=== PATIENT | female | born 1970 | race Caucasian/White ===

== ENCOUNTER 2018-11-23 08:49 | Emergency (ER) | payer SELFPAY ==
[~2018-11-23] VITALS: Ht 172.7 cm; Wt 83.2 kg
[~2018-11-23 08:49] MED LIST: FLEXERIL PO; KLONOPIN1 MG PO; KLONOPIN2 MG PO; LUNESTA3 MG PO; NAPROSYN500 MG PO; PRILOSEC20 MG/CAP PO; ROPINIROLE0.5 MG PO; TYLENOL 500MG TAB PO; XANAX0.5 MG PO
[2018-11-23 09:31] LABS: HEMOGLOBIN 14.9 g/dl (12.0-16.0); IMMATURE GRANULOCYTES 0.1 % (0.0-5.0); MEAN CELL VOLUME 91.5 fL CALC (80.0-100.0); MEAN CORPUSCULAR HGB 30.2 pG CALC (26.0-32.0); NEUT# 4.26 thou/uL (2.00-7.15); RED BLOOD COUNT 4.94 mill/uL (4.20-5.60); RED CELL DISTRI WIDTH 12.9 % (11.5-15.5)
[2018-11-23 09:33] LABS: HEMATOCRIT 45.2 % (37.0-47.0)
[2018-11-23 09:43] LABS: ANION GAP 14 (6-22 (CALC)); BILIRUBIN, TOTAL 0.4 mg/dL (0.0-1.4); BUN 17 mg/dL (7-17); BUN/CREATININE RATIO 26 (12-20 (CALC)); CARBON DIOXIDE 23 mmol/l (22-30); CHLORIDE 104 mmol/l (95-108); CREATININE 0.7 mg/dL (0.5-1.0); GFR > 60 ML/MIN (>=60 (CALC)); GFR FOR AFR.AMER. > 60 ML/MIN (>=60 (CALC)); POTASSIUM 4.4 mmol/l (3.5-5.1); SODIUM 137 mmol/l (137-146); TOTAL PROTEIN 7.3 g/dL (6.3-8.2)
[2018-11-23 09:44] LABS: ALBUMIN 4.7 g/dL (3.2-5.0); ALKALINE PHOSPHATASE 74 u/l (38-126); SGOT/AST 43 u/l (14-36)
[2018-11-23 09:58] LABS: URINE BILIRUBIN - DIPSTICK NEGATIVE (NEGATIVE); URINE BLOOD DIPSTICK NEGATIVE (NEGATIVE); URINE COLOR YELLOW; URINE GLUCOSE - DIPSTICK NEGATIVE (NEGATIVE); URINE KETONE NEGATIVE (NEGATIVE); URINE LEUK ESTERASE NEGATIVE (NEGATIVE); URINE NITRITE - DIPSTICK NEGATIVE (Negative); URINE PROTEIN - DIPSTICK NEGATIVE (NEG-TRACE); URINE SPECIFIC GRAVITY <=1.005; URINE UROBILINOGEN - DIPSTICK 0.2 E.U./dL (0.2)
[2018-11-23 10:13] LABS: TSH, 3RD GENERATION 3.41 uIU/mL (0.47 - 4.68)
[2018-11-23 10:17] LABS: COCAINE NEGATIVE (NEGATIVE); METHADONE NEGATIVE (NEGATIVE); TETRAHYDROCANNABIONOL NEGATIVE (NEGATIVE)
[2018-11-23 10:18] LABS: BARBITURATES NEGATIVE (NEGATIVE); OXCYCODONE NEGATIVE (NEGATIVE); TRICYLIC ANTIDEPRESSANTS NEGATIVE (NEGATIVE)
[2018-11-23 10:46] VITALS: BP 121/76
== END 2018-11-23 10:53 | disposition home or self-care (01) | DRG 880 ==
LOC: ED 08:49
PROVIDERS: Emergency Medicine
DX: F41.9 Anxiety disorder, unspecified (principal); E11.9 Type 2 diabetes mellitus without complications; I10 Essential (primary) hypertension

== ENCOUNTER 2019-10-07 | Day surgery (SDC) | payer SELFPAY ==
[~2019-10-07] MED LIST changes: +ALPRAZOLAM1 MG PO; +ATENOLOL25 MG PO; +LISINOP/HCTZ1 TA1 PO; +LISINOPRIL20 MG PO; +MIRALAX3350 NF PO; +TENORMIN PO
[2020-05-05] MEDS ORDERED: SUCRALFATE1 GM PO (13:17)
[2020-05-05] MEDS ORDERED: PROTONIX40 M2 PO (13:17)
[2020-05-05] MEDS ORDERED: DOCUSATE CAL240 MG PO (13:18)
[2020-05-05] MEDS ORDERED: SIMETHICONE (13:18)
[2020-05-05] MEDS ORDERED: B121000 MCG PO (13:18)
[2020-05-05] MEDS ORDERED: OMEGA 31000 MG PO (13:18)
[2020-05-20] MEDS ORDERED: GAS RELIEF80 M1 PO (11:55)
[2020-05-20] MEDS ORDERED: PROBIOTIC1 TAB PO (13:03)
[2020-05-20] MEDS ORDERED: B COMPLETE PO (13:04)
[2020-05-20] MEDS ORDERED: D3 MAXIMUM5000 UNI1 PO (13:04)
[2020-05-20] MEDS ORDERED: COLLAGE2 PO (13:04)
[2020-06-30] MEDS ORDERED: BENADRYL 25MG C25 MG PO (10:59)
== END 2019-10-07 09:40 | disposition home or self-care (01) | DRG 392 ==
PROC: 0DBE8ZX Excision of Large Intestine, Via Natural or Artificial Opening Endoscopic, Diagnostic (ICD-10-PCS; principal; 2019-10-07)
DX: K57.30 Diverticulosis of large intestine without perforation or abscess without bleeding (principal); K63.89 Other specified diseases of intestine; K64.8 Other hemorrhoids; I10 Essential (primary) hypertension; F41.9 Anxiety disorder, unspecified; Z86.010 Personal history of colon polyps

== ENCOUNTER 2020-04-18 12:07 | Emergency (ER) | payer SELFPAY ==
[~2020-04-18] VITALS: Ht 172.7 cm; Wt 80.0 kg
[2020-04-18] MEDS ORDERED: HYDROXYZ HCL25 MG PO (12:26)
[2020-04-18] MEDS ORDERED: DICYCLOMINE20 MG PO (12:27)
[2020-04-18] MEDS ORDERED: LOPID600 MG PO (12:27)
[2020-04-18 12:47] LABS: HEMATOCRIT 44.9 % (37.0-47.0); HEMOGLOBIN 14.5 g/dl (12.0-16.0); IMMATURE GRANULOCYTES 0.4 % (0.0-5.0); MEAN CORPUSCULAR HGB 27.6 pG CALC (26.0-32.0); MEAN CORPUSCULAR HGB CONC 32.3 g/dL CAL (32.0-36.0); NEUT# 4.47 thou/uL (2.00-7.15); RED BLOOD COUNT 5.25 mill/uL (4.20-5.60); RED CELL DISTRI WIDTH 14.2 % (11.5-15.5)
[2020-04-18 12:48] LABS: URINE BILIRUBIN - DIPSTICK NEGATIVE (NEGATIVE); URINE BLOOD DIPSTICK NEGATIVE (NEGATIVE); URINE COLOR YELLOW; URINE GLUCOSE - DIPSTICK NEGATIVE (NEGATIVE); URINE KETONE NEGATIVE (NEGATIVE); URINE LEUK ESTERASE NEGATIVE (NEGATIVE); URINE NITRITE - DIPSTICK NEGATIVE (Negative); URINE PROTEIN - DIPSTICK NEGATIVE (NEG-TRACE); URINE SPECIFIC GRAVITY 1.015; URINE UROBILINOGEN - DIPSTICK 0.2 E.U./dL (0.2)
[2020-04-18 12:48] LABS: MEAN CELL VOLUME 85.5 fL CALC (80.0-100.0)
[2020-04-18 13:05] LABS: ALBUMIN 5.1 g/dL (3.2-5.0); ALKALINE PHOSPHATASE 76 u/l (38-126); AMYLASE 63 u/l (30-110); ANION GAP 17 (6-22 (CALC)); BILIRUBIN, TOTAL 0.5 mg/dL (0.0-1.4); BUN 20 mg/dL (7-17); BUN/CREATININE RATIO 28 (12-20 (CALC)); CARBON DIOXIDE 24 mmol/l (22-30); CHLORIDE 98 mmol/l (95-108); CREATININE 0.7 mg/dL (0.5-1.0); GFR > 60 ML/MIN (>=60 (CALC)); GFR FOR AFR.AMER. > 60 ML/MIN (>=60 (CALC)); LIPASE 69 u/l (23-300); POTASSIUM 4.9 mmol/l (3.5-5.1); SODIUM 135 mmol/l (137-146); TOTAL PROTEIN 8.5 g/dL (6.3-8.2)
[2020-04-18 13:12] LABS: SGOT/AST 80 u/l (14-36)
[2020-04-18] MEDS ORDERED: PEPCID20 MG PO ×2 (14:32)
[2020-04-18 14:42] VITALS: BP 140/77
[2020-04-19] MEDS ORDERED: ATENOLOL50 MG PO (05:23)
[2020-04-19] MEDS ORDERED: MIRALAX3350 N1 PO (06:50)
[2020-05-05] MEDS ORDERED: PROTONIX40 M2 PO (13:17)
[2020-05-05] MEDS ORDERED: SUCRALFATE1 GM PO (13:17)
[2020-05-05] MEDS ORDERED: DOCUSATE CAL240 MG PO (13:18)
[2020-05-05] MEDS ORDERED: OMEGA 31000 MG PO (13:18)
[2020-05-05] MEDS ORDERED: SIMETHICONE (13:18)
[2020-05-05] MEDS ORDERED: B121000 MCG PO (13:18)
[2020-05-20] MEDS ORDERED: GAS RELIEF80 M1 PO (11:55)
[2020-05-20] MEDS ORDERED: PROBIOTIC1 TAB PO (13:03)
[2020-05-20] MEDS ORDERED: D3 MAXIMUM5000 UNI1 PO (13:04)
[2020-05-20] MEDS ORDERED: B COMPLETE PO (13:04)
[2020-05-20] MEDS ORDERED: COLLAGE2 PO (13:04)
[2020-06-30] MEDS ORDERED: BENADRYL 25MG C25 MG PO (10:59)
== END 2020-04-18 14:43 | disposition home or self-care (01) | DRG 392 ==
LOC: ED 12:07
DX: R10.11 Right upper quadrant pain (principal); R10.13 Epigastric pain; G89.29 Other chronic pain; E11.9 Type 2 diabetes mellitus without complications; I10 Essential (primary) hypertension; K58.9 Irritable bowel syndrome, unspecified; K57.90 Diverticulosis of intestine, part unspecified, without perforation or abscess without bleeding
CPT/HCPCS: Q9967

== ENCOUNTER 2020-04-19 02:51 | Emergency (ER) | payer SELFPAY ==
[~2020-04-19] VITALS: Ht 172.7 cm; Wt 80.0 kg
[~2020-04-19 02:51] MED LIST changes: +DICYCLOMINE20 MG PO; +HYDROXYZ HCL25 MG PO; +LOPID600 MG PO; +PEPCID20 MG PO
[2020-04-19 03:33] LABS: HEMATOCRIT 40.3 % (37.0-47.0); HEMOGLOBIN 13.2 g/dl (12.0-16.0); IMMATURE GRANULOCYTES 0.3 % (0.0-5.0); MEAN CELL VOLUME 85.9 fL CALC (80.0-100.0); MEAN CORPUSCULAR HGB 28.1 pG CALC (26.0-32.0); MEAN CORPUSCULAR HGB CONC 32.8 g/dL CAL (32.0-36.0); NEUT# 5.69 thou/uL (2.00-7.15); RED BLOOD COUNT 4.69 mill/uL (4.20-5.60); RED CELL DISTRI WIDTH 14.2 % (11.5-15.5)
[2020-04-19 03:49] LABS: ALBUMIN 4.7 g/dL (3.2-5.0); ALKALINE PHOSPHATASE 66 u/l (38-126); AMYLASE 68 u/l (30-110); ANION GAP 14 (6-22 (CALC)); BILIRUBIN, TOTAL 0.3 mg/dL (0.0-1.4); BUN 22 mg/dL (7-17); BUN/CREATININE RATIO 22 (12-20 (CALC)); CARBON DIOXIDE 26 mmol/l (22-30); CHLORIDE 100 mmol/l (95-108); GFR 59 ML/MIN (>=60 (CALC)); GFR FOR AFR.AMER. > 60 ML/MIN (>=60 (CALC)); LIPASE 91 u/l (23-300); POTASSIUM 4.6 mmol/l (3.5-5.1); SGOT/AST 53 u/l (14-36); SODIUM 134 mmol/l (137-146); TOTAL PROTEIN 7.6 g/dL (6.3-8.2)
[2020-04-19] MEDS ORDERED: ATENOLOL50 MG PO (05:23)
[2020-04-19 05:38] LABS: URINE BILIRUBIN - DIPSTICK NEGATIVE (NEGATIVE); URINE BLOOD DIPSTICK NEGATIVE (NEGATIVE); URINE COLOR YELLOW; URINE GLUCOSE - DIPSTICK NEGATIVE (NEGATIVE); URINE KETONE NEGATIVE (NEGATIVE); URINE LEUK ESTERASE NEGATIVE (NEGATIVE); URINE NITRITE - DIPSTICK NEGATIVE (Negative); URINE PROTEIN - DIPSTICK NEGATIVE (NEG-TRACE); URINE UROBILINOGEN - DIPSTICK 0.2 E.U./dL (0.2)
[2020-04-19] MEDS ORDERED: MIRALAX3350 N1 PO (06:50)
[2020-04-19 07:05] VITALS: BP 138/75
[2020-05-05] MEDS ORDERED: SUCRALFATE1 GM PO (13:17)
[2020-05-05] MEDS ORDERED: PROTONIX40 M2 PO (13:17)
[2020-05-05] MEDS ORDERED: SIMETHICONE (13:18)
[2020-05-05] MEDS ORDERED: DOCUSATE CAL240 MG PO (13:18)
[2020-05-05] MEDS ORDERED: B121000 MCG PO (13:18)
[2020-05-05] MEDS ORDERED: OMEGA 31000 MG PO (13:18)
[2020-05-20] MEDS ORDERED: GAS RELIEF80 M1 PO (11:55)
[2020-05-20] MEDS ORDERED: PROBIOTIC1 TAB PO (13:03)
[2020-05-20] MEDS ORDERED: COLLAGE2 PO (13:04)
[2020-05-20] MEDS ORDERED: D3 MAXIMUM5000 UNI1 PO (13:04)
[2020-05-20] MEDS ORDERED: B COMPLETE PO (13:04)
[2020-06-30] MEDS ORDERED: BENADRYL 25MG C25 MG PO (10:59)
== END 2020-04-19 07:05 | disposition home or self-care (01) | DRG 392 ==
LOC: ED 02:51
PROVIDERS: Family Medicine
DX: K58.1 Irritable bowel syndrome with constipation (principal); E11.9 Type 2 diabetes mellitus without complications; I10 Essential (primary) hypertension
CPT/HCPCS: Q9967

== ENCOUNTER 2020-05-27 06:11 | Day surgery (SDC) | payer SELFPAY ==
[~2020-05-27 06:11] MED LIST changes: +ATENOLOL50 MG PO; +B COMPLETE PO; +B121000 MCG PO; +COLLAGE2 PO; +D3 MAXIMUM5000 UNI1 PO; +DOCUSATE CAL240 MG PO; +GAS RELIEF80 M1 PO; +MIRALAX3350 N1 PO; +OMEGA 31000 MG PO; +PROBIOTIC1 TAB PO; +PROTONIX40 M2 PO; +SIMETHICONE; +SUCRALFATE1 GM PO
[2020-05-27 08:18] VITALS: BP 110/55
[2020-06-30] MEDS ORDERED: BENADRYL 25MG C25 MG PO (10:59)
== END 2020-05-27 08:35 | disposition home or self-care (01) | DRG 392 ==
LOC: ENDO 06:11 → ORM 08:00 → ENDO 08:35
PROVIDERS: ATTEND Surgery
PROC: 0DJ08ZZ Inspection of Upper Intestinal Tract, Via Natural or Artificial Opening Endoscopic (ICD-10-PCS; principal; 2020-05-27)
DX: K21.9 Gastro-esophageal reflux disease without esophagitis (principal); K44.9 Diaphragmatic hernia without obstruction or gangrene; Z79.899 Other long term (current) drug therapy; Z20.828 Contact with and (suspected) exposure to other viral communicable diseases

== ENCOUNTER 2020-07-06 08:36 | Day surgery (SDC) | payer SELFPAY ==
[~2020-07-06] VITALS: Ht 172.7 cm; Wt 97.1 kg
[2020-07-06] VITALS (7 sets, daily range): BP systolic 118–158; BP diastolic 70–89
[~2020-07-06 08:36] MED LIST changes: +BENADRYL 25MG C25 MG PO
--- NOTE | 2020-07-06 14:45 | NUR ---
PT ARRIVED TO [place] VIA WC FROM OR. A&O X3. BILATERAL SCDS IN PLACE. NG TUBE PLACED TO LOW INTERMITTENT SUCTION BY OR NURSE DUE TO NAUSEA. O2 VIA NC @ 2L PLACED. PT HOB ELEVATED. PT INSTRUCTED TO CALL IF NAUSEA OCCURS TO GIVE MEDICATION. INCISIONS CDI. PT INSTRUCTED TO CALL IF SHE NEEDS TO GET OUT OF BED. PT REQUESTS TO HAVE ICE CHIPS ONLY AT THIS TIME. ASSESSMENT COMPLETED. DISCUSSED POC. CALL LIGHT IN REACH. CONTINUE TO MONITOR.
--- NOTE | 2020-07-06 15:18 | NUR ---
PT ABLE TO TAKE MEDICATION WITH EASE. NO SWALLOWING DIFFICULTY NOTED. PT C/O PAIN AND NAUSEA. ZOFRAN AND DILAUDID GIVEN, PT WITH NG TUBE IN INTERMITTENT SUCTION SET AT LOW SUCTION DUE TO NAUSEA PER MD ORDERS.
--- NOTE | 2020-07-06 19:00 | NUR ---
RECEIVED REPORT FROM NURSE BONILLA PATIENT RESTING IN BED BREATHING UNLABORE, COMPLAINING OF ABDOMINAL PAIN WILL MEDICATE.
--- NOTE | 2020-07-06 20:00 | NUR ---
PATIENT ALERT ORIENTED ABLE TO MAKE NEEDS KNONW, WITH ONGOING IV D5 1/2 NS @ 100CC/HR INFUSING WELL. LBM 07/05, WITH NGT INSERTE ON THE LEFT NARE CONNECTED TO SUCTION ON LIS, DRAINING CLEAR YELLOW FLUID, STILL HAVING NAUSEA,WILL MEDICATE.
--- NOTE | 2020-07-06 22:55 | NUR ---
BLADDER SCXAN DONE 293ML, WILL CONTINUE TO MONITOR.
--- NOTE | 2020-07-06 23:30 | NUR ---
PATIENT C/O ABDOMINAL PAIN DUE TORADOL GIVEN.
--- NOTE | 2020-07-07 03:50 | NUR ---
ICE PACK APPLIED TO SUPRAPUBLIC AREA, DIS NOT VOID YET, BLADDER NOT DISTENDED.
--- NOTE | 2020-07-07 03:51 | NUR ---
PATIENT DENIES NAUSEA, NGT CLAMPED.
--- NOTE | 2020-07-07 05:06 | NUR ---
STILL NO VOID, BLADDER SCAN [id number], REFUSE DIAZ CATHETER INSERTION AT THIS TIME, PATIENT REQUESTED TO TRY TO SIT IN THE BATHROOM INSTEAD OF THE COMMODE, PATIENT ASSISTED TO THE BATHROOM WILL CONTINUE TOP MONITOR.
[2020-07-07 05:16] VITALS: BP 167/93
[2020-07-07 05:33] LABS: IMMATURE GRANULOCYTES 0.5 % (0.0-5.0); MEAN CELL VOLUME 93.8 fL CALC (80.0-100.0); MEAN CORPUSCULAR HGB CONC 30.9 g/dL CAL (32.0-36.0); RED CELL DISTRI WIDTH 12.9 % (11.5-15.5)
[2020-07-07 05:49] LABS: HEMATOCRIT 37.5 % (37.0-47.0); HEMOGLOBIN 11.6 g/dl (12.0-16.0)
--- NOTE | 2020-07-07 06:01 | NUR ---
SPOKE TO DR. KING NOTIFIED THAT HAS NOT URINATED LATEST BLADDER SCAN 467, AND MADE AWARE ABOUT PATIENT REFUSAL TO INSERT DIAZ AND STATED SHE WANTED TO WAIT FOR A WHOLE, WITH ORDER TO BOLUS NS 1LITER.
[2020-07-07 07:30] VITALS: BP 141/81
--- NOTE | 2020-07-07 07:30 | NUR ---
PATIENT LYING IN BED. NG TUBE PATENT AND NOT HOOKED TO SUCTIONS AT THIS TIME. ASSISTED PATEINT TO BEDSIDE COMMODE AND PATIENT DID URINATE 150 MLS AT THIS TIME. PATIENT ASSISTED BACK TO BED. SCD'S IN PLACE. SURGICAL SITE INSESPECTED AND FOUND TO BE INTACT (SIX LAPOROSCOPY SITES WITH DERMABOND). PATIENT ASSESSMENT DONE (SEE INTERVENTIONS). PATIENT PREVIOUSLY MEDICATED FOR PAIN AND NOW STATES PAIN LEVEL IS A 7 OUT OF 0-10 REPOSTIONED AT THIS TIME. DENIES ANY OTHER COMPLAINTS.
--- NOTE | 2020-07-07 11:09 | NUR ---
PATIENT C/O OF PAIN IN ABD. AREA STATED IT IS A 7 OUT OF A PIAN SCALE OF 0-10. MEDICATED AT THIS TIME (SEE EMAR). PATIENT REPOSITIONED.
--- NOTE | 2020-07-07 11:14 | NUR ---
NG TUBE PULLED D/C AT THIS TIME 300 MLS LEFT IN CANISTER. PATIENT TOLERATED PROCEEDURE WELL AND NG TUBE INTACT TO INCLUDE TIP. NO OTHER COMPLAINTS AT THIS TIME.
--- NOTE | 2020-07-07 11:27 | NUR ---
EDUCATED PATIENT ON THE USE OF ABDOMINAL BINDER AT THIS TIME. ABDOMINAL BINDER APPLIED. PATIENT UP TO CHAIR. VERBALIZES UNDERSTANDING OF USING ABD BINDER.
--- NOTE | 2020-07-07 12:42 | NUR ---
PATIENT UP IN CHAIR AT THIS TIME FAMILY IN ROOM STATES PAIN LEVEL IS NOW A 4 OUT OF A PAIN SCALE OF 0-10. PATIENT ABD. BINDER IN PLACE NO OTHER COMPLAINTS AT THIS TIIME.
--- NOTE | 2020-07-07 14:04 | NUR ---
AT BEDSIDE DISCUSSING POC INCLUDING PLANS TO D/C HOME.
--- NOTE | 2020-07-07 14:39 | NUR ---
PATIENT LAYING IN BED AT THIS TIME C/0 TENDERNESS IN HER ABD. STATES PAIN IS A 5 OUT OF A SCALE OF 0-10. PATIENT RECEIVED PAIN MED AT THIS TIME. PATIENT DENIES ANY OTHER NEEDS AT THIS TIME.
--- NOTE | 2020-07-07 15:53 | NUR ---
PATIENT UP IN ROOM WALKING. PATIENT STATES THAT THE P.0. PAIN MEDICATION IS WORK WELL AND PAIN IS COMING DOWN AND IS A 6 OUT OF A SCALE OF 0-10. PATIENT HAS BINDER ON AND IS TOLERATING LIQUIDS AT THIS TIME. PATIENT HAS REPORTED GOING TO THE BATHROOM MULTIPLE TIMES BY SELF AND IS URINATION WITHOUT ISSUES. PATIENT AT THIS TIME DENIES ANY OTHER NEEDS.
--- NOTE | 2020-07-07 18:07 | NUR ---
PATIENT UP IN CHAIR FOR DINNER. TOLERATING FULL LIQUID DIET. PATIENT STATED THAT HER PAIN LEVEL AT THIS TIME IS A 4 OUT OF A 0-10 PAIN SCALE. PATIENT DENIES ANY OTHER NEEDS AT THIS TIME.
[2020-07-07 18:20] VITALS: BP 152/74
[2020-07-07 19:00] VITALS: BP 155/65
--- NOTE | 2020-07-07 20:03 | NUR ---
NURSING REPORT RECEIVED FROM FAUSTINO. PT ASSESSMENT AND VITALS COMPLETE. PT RESTING IN BED WATCHING TV. ALERT AND ORIENTED. NO APPARENT DISTRESS NOTED. RESPIRATIONS EVEN AND UNLABORED ON RA. IV SITE APPEARS HEALTHY SLAINE LOCKED. PT REQUESTED PRN PAIN MEDICATION. DISCUSSED POC AND SAFETY PRECAUTIONS. PT VERBALIZED UNDERSTANDING. NO CURRENT WANTS OR NEEDS. CALL LIGHT WITHIN REACH. WILL CONTINUE TO MONITOR.
--- NOTE | 2020-07-08 00:03 | NUR ---
PT LAYING IN BED WITH EYES CLOSED, APPEARS TO BE SLEEPING, APPEARS COMFORTABLE AND IN NO DISTRESS. RESPIRATIONS REGULAR AND UNLABORED. ITEMS REMAIN WITHIN REACH, CALL TRAORE REMAINS WITHIN REACH. BED REMAINS LOCKED AND IN LOW POSITION WITH BEDRAILS UP X2. WILL CONTINUE TO MONITOR.
[2020-07-08 03:47] VITALS: BP 108/64
[2020-07-08 08:00] VITALS: BP 119/43
[2020-07-08 09:03] VITALS: BP 108/64
--- NOTE | 2020-07-08 10:17 | NUR ---
PT SEEN ON THIS POD #2 FOR HER, IS AWAKE, ALERT, ORIENTED X 3. LUNGS CLEAR, RA. PT IS AMBULATORY IN ROOM WITHOUT UNSTEADINESS. ABDOMINAL INCISION SITES ARE COVERED WITH DERMABOND, ALL APPEAR WNL. PT USES ABDOMINAL BINDER NEEDED WHEN UP AND AROUND ROOM. PT HAS BEEN DISCHARGED TO HOME. PT VERBALIZED UNDERSTANDING OF DC INSTRUCTIONS, QUESTIONS ANSWERED REGARDING HER WOUND CARE AND ACTIVITY AND DIET. PT LEAVES [facility] IN STABLE CONDITION, WAS LEFT ON BENCH OUTSIDE WITH HER RIDE COMING VERY SOON.
== END 2020-07-08 10:07 | disposition home or self-care (01) | DRG 328 ==
LOC: ORM 08:36 → MS2 14:45 → ORM 07-08 10:07
PROVIDERS: ATTEND Surgery
PROC: 0DV44ZZ Restriction of Esophagogastric Junction, Percutaneous Endoscopic Approach (ICD-10-PCS; principal; 2020-07-06)
PROC: 0BQT4ZZ Repair Diaphragm, Percutaneous Endoscopic Approach (ICD-10-PCS; 2020-07-06)
DX: K44.9 Diaphragmatic hernia without obstruction or gangrene (principal); K21.9 Gastro-esophageal reflux disease without esophagitis; I10 Essential (primary) hypertension; Z20.828 Contact with and (suspected) exposure to other viral communicable diseases
CPT/HCPCS: J0131; J1650; J2710

== ENCOUNTER 2022-03-24 16:15 | Emergency (ER) | payer SELFPAY ==
[~2022-03-24] VITALS: Ht 172.7 cm; Wt 81.6 kg
[2022-03-24 17:14] LABS: HEMATOCRIT 42.5 % (37.0-47.0); MEAN CORPUSCULAR HGB CONC 33.9 g/dL CAL (32.0-36.0); NEUT# 1.91 thou/uL (2.00-7.15); RED BLOOD COUNT 5.15 mill/uL (4.20-5.60); RED CELL DISTRI WIDTH 12.6 % (11.5-15.5)
[2022-03-24 17:17] LABS: HEMOGLOBIN 14.4 g/dl (12.0-16.0); MEAN CELL VOLUME 82.5 fL CALC (80.0-100.0)
[2022-03-24 17:30] LABS: ALBUMIN 4.8 g/dL (3.2-5.0); ALKALINE PHOSPHATASE 61 u/l (38-126); ANION GAP 17 (6-22 (CALC)); BILIRUBIN, TOTAL 0.5 mg/dL (0.0-1.4); BUN 26 mg/dL (7-17); BUN/CREATININE RATIO 21 (12-20 (CALC)); CARBON DIOXIDE 22 mmol/l (22-30); CHLORIDE 100 mmol/l (95-108); CREATININE 1.3 mg/dL (0.5-1.0); GFR FOR AFR.AMER. 52 ML/MIN (>=60 (CALC)); GFR OTHER RACES 43 ML/MIN (>=60 (CALC)); POTASSIUM 4.2 mmol/l (3.5-5.1); SGOT/AST 30 u/l (14-36); SODIUM 135 mmol/l (137-146); TOTAL PROTEIN 8.4 g/dL (6.3-8.2)
[2022-03-24 17:31] VITALS: BP 90/56
[2022-03-24 17:42] LABS: MYOGLOBIN 37 ng/mL (0 - 62)
[2022-03-24 18:30] VITALS: BP 103/64
[2022-03-24 19:01] VITALS: BP 86/62
[2022-03-24 19:03] LABS: URINE BILIRUBIN - DIPSTICK NEGATIVE (NEGATIVE); URINE BLOOD DIPSTICK NEGATIVE (NEGATIVE); URINE COLOR YELLOW; URINE GLUCOSE - DIPSTICK NEGATIVE (NEGATIVE); URINE KETONE NEGATIVE (NEGATIVE); URINE LEUK ESTERASE NEGATIVE (NEGATIVE); URINE PH 5.5 (4.5-8.0); URINE PROTEIN - DIPSTICK NEGATIVE (NEG-TRACE); URINE SPECIFIC GRAVITY <=1.005; URINE UROBILINOGEN - DIPSTICK 0.2 E.U./dL (0.2)
[2022-03-24 19:06] LABS: URINE NITRITE - DIPSTICK NEGATIVE (Negative)
[2022-03-24 19:31] VITALS: BP 103/66
[2022-03-24 19:52] VITALS: BP 103/66
== END 2022-03-24 19:59 | disposition home or self-care (01) | DRG 880 ==
LOC: ED 16:15
PROVIDERS: Emergency Medicine
DX: F41.9 Anxiety disorder, unspecified (principal); R53.1 Weakness; E86.0 Dehydration; E11.9 Type 2 diabetes mellitus without complications; I10 Essential (primary) hypertension; E78.5 Hyperlipidemia, unspecified; T43.506A Underdosing of unspecified antipsychotics and neuroleptics, initial encounter; Z91.128 Patient's intentional underdosing of medication regimen for other reason; Z20.822 Contact with and (suspected) exposure to COVID-19